=== PATIENT | male | born 1975 | race African-American/Black ===

== ENCOUNTER 2016-11-23 18:00 | Emergency (ER) | payer BC ==
[~2016-11-23] VITALS: Ht 185.4 cm; Wt 141.8 kg
[2016-11-23 18:36] LABS: HEMATOCRIT 42.2 % (38.0-50.0); MCH 30.1 PG (29.0-34.0); MCHC 33.6 G/DL (30.0-36.0); MCV 89.6 FL (86-99); PLATELET COUNT 186 K/uL (156-360); RBC DIS.WIDTH-CV 13.1 % (11.8-14.6); RBC DIS.WIDTH-SD 43.1 % (39-53); RED BLOOD COUNT 4.71 M/uL (4.00-5.50); WHITE BLOOD COUNT 5.3 K/uL (4.1-10.2)
[2016-11-23 18:45] LABS: CHLORIDE 106 mEq/L (99-109); POTASSIUM 3.8 mEq/L (3.7-5.4); SODIUM 139 mEq/L (136-147)
[2016-11-23 18:47] LABS: GLUCOSE 86 mg/dL (70-99)
[2016-11-23 18:48] LABS: ANION GAP 11 MEQ/L (2-14)
[2016-11-23 18:51] LABS: GFR ESTIMATE (CALCULATED) > 59 mL/min/
[2016-11-23 18:52] LABS: UREA NITROGEN (BUN) 12 mg/dL (9-23)
[2016-11-23 18:59] LABS: TROP-I INTERPRETATION NEGATIVE; TROPONIN-I < 0.01 ng/mL (0.0-0.30)
[2016-11-23 19:01] VITALS: BP 112/74
[2016-11-23] MEDS ORDERED: MOTRIN600 MG PO (19:25)
== END 2016-11-23 19:49 | disposition home or self-care (01) ==
LOC: EME 18:00
DX: R09.1 Pleurisy (principal); R07.89 Other chest pain
CPT/HCPCS: 71020; 80048; 84484; 85027; 93005; 99281; 99284